=== PATIENT | male | born 1935 | race Caucasian/White ===

== ENCOUNTER → 2018-10-14 14:35 | Outpatient (CLI) | payer OTHER, SELFPAY ==
--- NOTE | 2018-10-14 | DI.RAD.S_ITS ---
PROCEDURE: XR LUMBAR SPINE MIN 4V INDICATIONS: LUMBAR RADICULOPATHY TECHNIQUE: 5 views of the lumbar spine were acquired. COMPARISON: Outside Film, CT, CT ABDOMEN PELVIS WITHOUT CONTRAST, 07/08/2018, 10:45. FINDINGS: Bones: 5 nonrib-bearing vertebrae are present. There is multilevel trace retrolisthesis of L1 on L2, L2 and L3, L3 on L4. Severe disc space narrowing is present at T12-L1, L1-L2, L3-L4, L4-5 and L5-S1. Severe foraminal narrowing is present at L5-S1, moderate to severe L4-5. Prominent bridging osteophytes are present at T11-12. No vertebral body compression fractures. No suspicious bony lesions. Soft tissues: Overlying bowel gas pattern is normal. No suspicious soft tissue calcifications. Oblique images: No pars defects. IMPRESSION: Multilevel degenerative changes with as above most severe at L5-S1. Dictated by: Almaz Guevara M.D. on 10/14/2018 at 16:28 Approved by: Almaz Guevara M.D. on 10/14/2018 at 16:30
== END ==
PROVIDERS: PCP Family Medicine; Visit Provider Family Medicine
DX: M47.27 Other spondylosis with radiculopathy, lumbosacral region (principal)
CPT/HCPCS: 72110

== ENCOUNTER → 2019-01-08 15:39 | Outpatient (CLI) | payer OTHER, SELFPAY ==
--- NOTE | 2019-01-08 15:46 | DI.MRI.S_ITS ---
PROCEDURE: MR LUMBAR SPINE WO CON INDICATIONS: Low back left lower extremity symptoms TECHNIQUE: Noncontrast sagittal T1 spin echo and T2 fast echo, sagittal STIR, axial T1 and T2 fast spin echo through the lumbar spine. In cases with scoliosis, additional coronal T2 fast spin echo may be performed. COMPARISON: [facility], CR, XR LUMBAR SPINE MIN 4V, 10/14/2018, 14:46. FINDINGS: Image quality: Excellent. Alignment and Curvature: 5 lumbar type vertebral bodies are present a plain film. There is mild, grade 1 retrolisthesis of L1 on L2, and L2 on L3. Bone Marrow: Marrow is of normal overall signal. No acute vertebral body compression fractures. There is moderate reactive signal within the endplates adjacent to the L2-L3 and L3-L4 intervertebral discs. Mild reactive signal within the implant adjacent to the T11-T12, T12-L1, L1-L2, L4-L5, and L5-S1 intervertebral discs. Left L4-L5 hemilaminotomy. Spinal Cord: Conus medullaris terminates at the L2-L3 disc space level. Visualized cord demonstrates normal signal and size. Paraspinous Soft Tissues: No paravertebral masses. L1-L2: Moderate disc height loss and desiccation. Moderate diffuse disc bulge. Mild facet and ligament flavum hypertrophy. Mild canal stenosis. Moderate subarticular foraminal stenosis bilaterally. L2-L3: Moderate disc height loss and desiccation. Moderate diffuse disc bulge. Mild facet and ligament flavum hypertrophy. Mild canal stenosis. Moderate subarticular foraminal stenosis. L3-L4: Severe disc height loss and desiccation. Moderate diffuse disc bulge/osteophyte. Moderate facet and ligamentum flavum hypertrophy bilaterally. Severe canal stenosis. Moderate subarticular foraminal stenosis bilaterally. L4-L5: Moderate disc height loss and desiccation. Moderate diffuse disc bulge. Mild facet hypertrophy bilaterally. Left hemilaminotomy. Mild canal stenosis. Severe left and moderate right subarticular foraminal stenosis. Mild left L4 nerve root compression. L5-S1: Moderate disc height loss and desiccation. Moderate diffuse disc bulge. Moderate bilateral facet hypertrophy. No significant canal stenosis. Severe left and moderate right subarticular foraminal stenosis. Mild left L5 nerve root compression. IMPRESSION: 1. Multilevel degenerative disc and facet disease, as well as ligamentum flavum hypertrophy and epidural lipomatosis. 2. Multilevel canal stenoses, worst at L3-L4, where there is severe canal stenosis. 3. Multilevel foraminal stenoses, worst at L4-L5 and L5-S1, where there is associated intraforaminal nerve root compression. Recommend correlation with clinical symptoms to ascertain relevance of these findings. Dictated by: Demario Rivas M.D. on 01/09/2019 at 8:17 Approved by: Demario Rivas M.D. on 01/09/2019 at 8:28
== END ==
PROVIDERS: PCP Family Medicine; Visit Provider Physical Medicine & Rehabilitation
DX: M47.27 Other spondylosis with radiculopathy, lumbosacral region (principal); M51.16 Intervertebral disc disorders with radiculopathy, lumbar region; M51.17 Intervertebral disc disorders with radiculopathy, lumbosacral region; M48.061 Spinal stenosis, lumbar region without neurogenic claudication; M48.07 Spinal stenosis, lumbosacral region; E88.2 Lipomatosis, not elsewhere classified; R26.81 Unsteadiness on feet; Z98.890 Other specified postprocedural states
CPT/HCPCS: 72148

== ENCOUNTER → 2019-03-12 13:30 | Outpatient (CLI) | payer OTHER, SELFPAY ==
--- NOTE | 2019-03-12 | DI.RAD.S_ITS ---
PROCEDURE: XR KUB INDICATIONS: CALICULUS OF KIDNEY TECHNIQUE: One view of the abdomen acquired. COMPARISON: Outside Film, CT, CT ABDOMEN PELVIS WITHOUT CONTRAST, 07/08/2018, 10:45. FINDINGS: Surgical changes and devices: None. Bowel: Bowel gas pattern is normal. Soft tissues: No suspicious abdominal calcifications. Visualized solid organ contours appear normal in size. The body habitus is relatively large, the calculus seen by prior CT scanning 07/08/18 was small on the right, and cannot be detected by this study. Bones: No suspicious bony lesions. IMPRESSION: No urinary tract stone identified. As discussed, the calculus seen by prior CT scan in July of last year was only approximately 2-3 mm in maximal dimension, and cannot be detected by this plain film imaging. Surgical clips of prior cholecystectomy at the right upper quadrant can be seen. Dictated by: Tho Maxwell M.D. on 03/12/2019 at 15:35 Approved by: Tho Maxwell M.D. on 03/12/2019 at 15:37
== END ==
PROVIDERS: PCP Family Medicine; Referring Provider Urology; Visit Provider Urology
DX: N20.0 Calculus of kidney (principal); Z90.49 Acquired absence of other specified parts of digestive tract
CPT/HCPCS: 74018

== ENCOUNTER → 2019-06-23 13:38 | Outpatient (CLI) | payer OTHER, SELFPAY ==
[2019-06-24 11:03] LABS: COVID19 Sendout NOT DETECTED
== END ==
PROVIDERS: PCP Family Medicine; Visit Provider Registered Nurse
DX: Z01.818 Encounter for other preprocedural examination (principal)
CPT/HCPCS: 87635

== ENCOUNTER 2019-06-26 13:18 | Outpatient (CLI) | payer OTHER, SELFPAY ==
[2019-06-26] VITALS (10 sets, daily range): BP systolic 139–180; BP diastolic 77–100; PULSE 76–95; RESP 16–18; TEMP 36.6; O2SAT 93–98
--- NOTE | 2019-06-26 13:20 | DI.RAD.S_ITS ---
PROCEDURE: PAIN L INTERLAMINAR/CAUDAL INJ INDICATIONS: SPONDYLOSIS FINDINGS: Fluoroscopic spot filming was performed to verify placement of spinal needles at the L3-4 midline level(s), as labeled on the films. Appropriate location(s) of the needle tip(s) was confirmed by injection of iodinated contrast. IMPRESSION: Successful midline L3-L4 needle tip localization for interlaminar epidural steroid injection. Dictated by: Tho Maxwell M.D. on 06/26/2019 at 15:12 Approved by: Tho Maxwell M.D. on 06/26/2019 at 15:13
--- NOTE | 2019-06-26 13:44 | P.PCN_ITS ---
Procedures Date/Time Date of procedure: 06/26/19 Time of procedure: 13:48 General Procedure description: POST OP DIAGNOSIS 1. HNP WITH RADICULAR FEATURES, 2. MULTILEVEL CENTRAL STENOSIS, PROCEDURES 1. FLUORSCOPICALLY GUIDED CONTRAST CONTROLLED INTERLAMINAR EPIDURAL STEROID INJECTION - L3/4 PHYSICIAN: Oli Delcid, INDICATIONS Kenny is referred by Dr. Jacob for treatment of Bilateral Foraminal Stenosis L>R LE symptoms. FINDINGS Multilevel Central Spinal Stenosis with Nerve Root Compression DESCRIPTION OF PROCEDURE Fluoroscopically guided, contrast-controlled L3/4 translaminar epidural steroid injection. Following review of allergy and review of potential side effects and complications, including, but not necessarily limited to, infection, allergic reaction, local tissue breakdown, temporary as well as permanent nerve injury, paralysis, stroke and possible , the patient indicated that the patient understood and agreed to proceed. An informed consent document was signed by the patient, witnessed by a nurse, and placed in the patient's chart. Additionally, other treatment options including modalities, medications, and physical therapy were reviewed with the patient. After review of previous anaesthesic history and IV conscious sedation the patient was deemed safe to proceed with todays procedure with IV conscious sedation as ASA class II designation. Safety time-out was performed to confirm patient ID, procedure to be performed and site of procedure. IV sedation was accomplished with a combination of 2mg of Versed was administered by the RN after DO order, titrated to patient comfort during the course of the procedure while the patient remained responsive to all verbal commands. In the prone position, following sterile prep and drape of the lumbar region, the L3/4 translaminar space was identified fluoroscopically. The skin was anesthetized via a 25-gauge, 1.5-inch needle with 1% lidocaine solution. At this point, a 22-gauge short bevel spinal needle was atraumatically introduced and advanced under fluoroscopic guidance into the region of the L3/4 translaminar space. Depth was confirmed on lateral view. Radiological data, including multiple fluoroscopic views of the lumbar spine, reveal a spinal needle at the L3/4 translaminar space. Lateral views then show placement of the needle in the epidural space. Subsequent views show contrast material flowing superiorly and inferiorly in the epidural space. No vascular or intrathecal uptake is observed. At this point, using loss of resistance technique with saline and air, the epidural space was entered. This was confirmed following negative aspiration with injection of approximately 1.5 cc of Isovue 200, showing excellent epidural flow without vascular or intrathecal uptake. At this point, 1 cc of 1% lidocain e solution combined with 3cc or 20mg of dexamethasone and 6mg of betamethasone was injected without incident. The patient tolerated the procedure well without signs or symptoms of complications prior to transfer to the recovery area continued monitoring without incident. The patient was then transferred to the recovery area where they were observed for an appropriate period of time after the injection. The patient reported a VAS score of 6 prior to the procedure and a post- procedure VAS of 0. Total Fluoroscopy Time: 11 seconds Total Conscious Sedation Time: 24min POST OP INSTRUCTIONS The patient was provided a Pain Log to continue to record their response to the target-specific procedure prior to follow-up visit with their referring physician. Additionally, specific post-injection care instructions and a contact number to our office were provided if concerns arise regarding possible complications associated with the procedure are suspected. Oli Delcid, Complications: none
[2019-06-26] MEDS: MIDAZOLAM 5 MG/5 ML VIAL IV (14:20)
[2019-06-26] MEDS: DEXAMETHASONE 10 MG/ML VIAL 20 MG INJ (14:27)
[2019-06-26] MEDS: BUPIVACAINE 0.25% (PF) VIAL 2 ML INJ (14:27)
[2019-06-26] MEDS: IOPAMIDOL 15 ML VIAL 3 ML INJ (14:28)
[2019-06-26] MEDS: BETAMETHASONE 30 MG/5 ML MDV 6 MG INJ (14:28)
== END 2019-06-26 15:00 | disposition home or self-care (01) ==
LOC: RAD 13:19
PROVIDERS: PCP Family Medicine; Referring Provider Physical Medicine & Rehabilitation; Visit Provider Physical Medicine & Rehabilitation
DX: M51.16 Intervertebral disc disorders with radiculopathy, lumbar region (principal); M48.061 Spinal stenosis, lumbar region without neurogenic claudication
CPT/HCPCS: 62323; 99152; J0702; J1100; J2250; J3010

== ENCOUNTER → 2020-06-10 13:19 | Outpatient (CLI) | payer OTHER, SELFPAY ==
--- NOTE | 2020-06-10 | DI.ECHO.S_ITS ---
[place] [facility]---------+ [facility] +---------+ : : [address] : [address] : : : : [id number] : : : : Phone: [phone]+ Echocardiogram Report + + :Name: SHARI COLMENARES Study Date: 06/10/2020 Height: 69 in : :[facility] ReadingLocation: Weight: 275 lb : : Gender: Male BSA: 2.4 m2 : :: 1935 Age: 84 yrs BP: 185/97 mmHg: :Reason For Study: Hypertension : :Ordering Physician: : :cheikh harkins Performed By: Jignesh Mobley : :Referring: CHEIKH HARKINS : + + Interpretation Summary This is a technically difficult study enhanced with Definity echocontrast. Normal sinus rhythm with frequent PAC's. Patient's blood pressure was significantly elevated during exam at 185/97 mm Hg. Normal LV size and wall thickness; normal wall motion based on visualized segments. Of note only 10 out of 17 segments are visualized. Grossly normal LV systolic function. EF is 60-65%. Mildly dilated RV; atria demonstrate normal size. No significant valvular abnormalities. No prior study available for comparison. Procedure: A two-dimensional transthoracic echocardiogram with color flow and Doppler was performed. The study quality was technically difficult. There is no prior echocardiogram noted for this patient. A contrast injection of Definity was performed to improve assessment of LV function. Left Ventricle: The left ventricle is not well visualized. Due to the poor quality of the echocardiogram, an assessment of left ventricular ejection fraction cannot be made. Regional wall motion abnormalities cannot be excluded due to limited visualization. Unable to assess diastolic function due to arrhythmia. Right Ventricle: The right ventricle is mildly dilated. The right ventricular systolic function is normal. Atria: The left atrium is not well visualized. Right atrium not well visualized secondary to technical limitations. There is no Doppler evidence for an interatrial shunt. Mitral Valve: There is mild mitral annular calcification. There is no mitral regurgitation noted. Aortic Valve: The aortic valve is trileaflet. The aortic valve opens well. No aortic regurgitation is present. Tricuspid Valve: There is mild tricuspid regurgitation. Pulmonary artery pressures cannot be estimated because of the lack of a measurable TR jet velocity but the IVC suggests a CVP of around 8 mmHg. Pulmonic Valve: The pulmonic valve is not well seen, but is grossly normal. There is no pulmonic valvular regurgitation. Great Vessels: The aortic root is not well visualized. The ascending aorta could not be visualized. The IVC is dilated (diameter is greater than 2.1 cm) yet it collapses greater than 50% with a sniff. This suggests a right atrial pressure of 8 mm Hg. Pericardium/ Pleura There is no pericardial effusion. There is no pleural effusion. MMode/2D Measurements & Calculations LVIDd: 5.8 cm LVOT diam: 2.4 cm LVIDs: 3.9 cm FS: 32.3 % IVSd: 1.2 cm LVPWd: 0.63 cm LV mcmillan. diameter/BSA (cm/m^2): 2.4 LV sys. diameter/BSA (cm/m^2): 1.7 IVC diam: 2.6 cm Doppler Measurements & Calculations Ao V2 max: 97.2 cm/sec LVOT Max Estuardo: 77.7 cm/sec Ao V2 mean: 66.1 cm/sec LV V1 max P.4 mmHg Ao max P.8 mmHg LV V1 VTI: 16.3 cm Ao mean P.0 mmHg ABHINAV(I,D): 4.1 cm2 Ao V2 VTI: 18.1 cm ABHINAV(V,D): 3.7 cm2 sev ratio: 0.90 ABHINAV indexed to BSA (cm^2/m^2): 1.7 Med Peak E' Estuardo: 6.5 cm/sec PA V2 max: 125.0 cm/sec PA V2 mean: 84.8 cm/sec PA mean P.2 mmHg PA pr(Accel): 54.1 mmHg SV(LVOT): 75.0 ml Electronically signed by: Ivy Hodges M.D. on Reading Physician:06/11/2020 01:07 AM
== END ==
PROVIDERS: PCP Internal Medicine; Referring Provider Internal Medicine; Visit Provider Internal Medicine
DX: I07.1 Rheumatic tricuspid insufficiency (principal); I10 Essential (primary) hypertension
CPT/HCPCS: C8929; Q9957

== ENCOUNTER → 2021-08-17 12:43 | Outpatient (CLI) | payer OTHER, SELFPAY ==
--- NOTE | 2021-08-17 12:45 | DI.RAD.S_ITS ---
PROCEDURE: XR LUMBAR SPINE MIN 4V INDICATIONS: BACK PAIN TECHNIQUE: 5 views of the lumbar spine were acquired, including bilateral oblique views. COMPARISON: [facility], , XR LUMBAR SPINE MIN 4V, 10/14/2018, 14:46. FINDINGS: Bones: 5 nonrib-bearing vertebrae are present. There is 6 mm retrolisthesis of L1 on L2. Degenerative endplate changes, loss of disc height and bilateral facet arthrosis are seen. No acute vertebral body compression fractures. Chronic appearing mild anterior wedge compression deformity involving superior endplate of T12 and L1 are seen unchanged from 2019 study . No suspicious bony lesions. Soft tissues: Overlying bowel gas pattern is normal. No suspicious soft tissue calcifications. Oblique images: No pars defects. IMPRESSION: Grade 1 retrolisthesis of L1 on L2. No acute compression fracture. Degenerative disc disease throughout lumbar spine. Chronic appearing mild anterior wedge compression deformity at T12 and L1 levels unchanged from prior study. Dictated by: Jamie Sharp M.D. on 08/17/2021 at 14:47 Approved by: Jamie Sharp M.D. on 08/17/2021 at 14:48
== END ==
PROVIDERS: PCP Internal Medicine; Referring Provider Physical Medicine & Rehabilitation; Visit Provider Physical Medicine & Rehabilitation
DX: M47.27 Other spondylosis with radiculopathy, lumbosacral region (principal); M51.16 Intervertebral disc disorders with radiculopathy, lumbar region; M43.16 Spondylolisthesis, lumbar region; M17.11 Unilateral primary osteoarthritis, right knee; M43.9 Deforming dorsopathy, unspecified; R26.81 Unsteadiness on feet; Z98.890 Other specified postprocedural states
CPT/HCPCS: 20611; 72110; 99215; J0702

== ENCOUNTER → 2021-10-04 11:02 | Outpatient (CLI) | payer OTHER, SELFPAY ==
[2021-10-04 13:42] LABS: COVID19 -Nasal RAPID Negative (Negative)
== END ==
PROVIDERS: PCP Internal Medicine; Visit Provider Physical Medicine & Rehabilitation
DX: Z20.822 Contact with and (suspected) exposure to COVID-19 (principal)
CPT/HCPCS: 87635; C9803

== ENCOUNTER 2021-10-06 10:08 | Outpatient (CLI) | payer OTHER, SELFPAY ==
[2021-10-06] VITALS (8 sets, daily range): BP systolic 141–182; BP diastolic 64–96; PULSE 72–75; RESP 18–26; TEMP 36.7; O2SAT 94–98
--- NOTE | 2021-10-06 10:09 | DI.RAD.S_ITS ---
PROCEDURE: PAIN L INTERLAMINAR/CAUDAL INJ INDICATIONS: SPONDYLOSIS COMPARISON: [facility], XA, PAIN L INTERLAMINAR/CAUDAL INJ, 06/26/2019, 13:22. FINDINGS: Fluoroscopic spot filming was performed to verify placement of spinal needles at the L2-L3 level, as labeled on the films. Appropriate location(s) of the needle tip(s) was confirmed by injection of iodinated contrast. IMPRESSION: Fluoroscopic images demonstrating L2-L3 translaminar epidural steroid injection. Dictated by: Feng Duarte M.D. on 10/06/2021 at 12:33 Approved by: Feng Duarte M.D. on 10/06/2021 at 12:34
[2021-10-06] MEDS: MIDAZOLAM 2 MG/2 ML VIAL IV (11:04)
[2021-10-06] MEDS: BUPIVACAINE 0.25% (PF) VIAL 2 ML INJ (11:06)
[2021-10-06] MEDS: IOPAMIDOL 15 ML VIAL 3 ML INJ (11:06)
[2021-10-06] MEDS: BETAMETHASONE 30 MG/5 ML MDV 6 MG INJ (11:07)
[2021-10-06] MEDS: DEXAMETHASONE 10 MG/ML VIAL 20 MG INJ (11:07)
--- NOTE | 2021-10-06 11:17 | PM.PROC.IR.1 ---
Date/Time/Diagnoses Date of procedure: 10/06/21 Time of procedure: 11:17 Pre-procedure diagnosis: 1. HNP WITH RADICULAR FEATURES, 2. MULTILEVEL CENTRAL STENOSIS, Post-procedure diagnosis: same Procedure Notes Procedure: 1. FLUOROSCOPICALLY GUIDED CONTRAST CONTROLLED INTERLAMINAR EPIDURAL STEROID INJECTION - L2/3 Indications: Kenny is referred by Dr. Chi for treatment of Bilateral Foraminal Stenosis L>R LE symptoms. Physician: Oli Delcid Total Fluoroscopy time (seconds): 10 Total sedation minutes: 9 Complications: none Procedure in detail & Post-procedure care: FINDINGS Multilevel Central Spinal Stenosis with Nerve Root Compression DESCRIPTION OF PROCEDURE Fluoroscopically guided, contrast-controlled L2/3 translaminar epidural steroid injection. Following review of allergy and review of potential side effects and complications, including, but not necessarily limited to, infection, allergic reaction, local tissue breakdown, temporary as well as permanent nerve injury, paralysis, stroke and possible , the patient indicated that the patient understood and agreed to proceed. An informed consent document was signed by the patient, witnessed by a nurse, and placed in the patient's chart. Additionally, other treatment options including modalities, medications, and physical therapy were reviewed with the patient. After review of previous anaesthesic history and IV conscious sedation the patient was deemed safe to proceed with today?s procedure with IV conscious sedation as ASA class II designation. Safety time-out was performed to confirm patient ID, procedure to be performed and site of procedure. IV sedation was accomplished with a combination of 2mg Versed administered by the RN after DO order, titrated to patient comfort during the course of the procedure while the patient remained responsive to all verbal commands. In the prone position, following sterile prep and drape of the lumbar region,the L2/3 translaminar space was identified fluoroscopically. The skin was anesthetized via a 25-gauge, 1.5-inch needle with 1% lidocaine solution. At this point, a 22-gauge short bevel spinal needle was atraumatically introduced and advanced under fluoroscopic guidance into the region of the L2/3 translaminar space. Depth was confirmed on lateral view. Radiological data, including multiple fluoroscopic views of the lumbar spine, reveal a spinal needle at the L2/3 translaminar space. Lateral views then show placement of the needle in the epidural space. Subsequent views show contrast material flowing superiorly and inferiorly in the epidural space. No vascular or intrathecal uptake is observed. At this point, using loss of resistance technique with saline and air, the epidural space was entered. This was confirmed following negative aspiration with injection of approximately 1.5 cc of Isovue 200, showing excellent epidural flow without vascular or intrathecal uptake. At this point, 1 cc of 1% lidocaine solution combined with 3cc or 20mg of dexamethasone and 6mg of betamethasone was injected without incident. The patient tolerated the procedure well without signs or symptoms of complications prior to transfer to the recovery area continued monitoring without incident. The patient was then transferred to the recovery area where they were observed for an appropriate period of time after the injection. The patient reported a VAS score of 6 prior to the procedure and a post-procedure VAS of 0. POST OP INSTRUCTIONS The patient was provided a Pain Log to continue to record their response to the target-specific procedure prior to follow-up visit with their referring physician. Additionally, specific post-injection care instructions and a contact number to our office were provided if concerns arise regarding possible complications associated with the procedure are suspected.
--- NOTE | 2021-10-06 12:09 | P.PCN_ITS ---
Date/Time/Diagnoses Date of procedure: 10/06/21 Time of procedure: 12:09 Pre-procedure diagnosis: 1. RECALCITRANT FACET ARTHROPATHY Post-procedure diagnosis: same Procedure Notes Procedure: 1. BILATERAL L3, L4 AND L5 MEDIAL BRANCH RADIOFREQUENCY NEUROTOMY Indications: Kenny is referred by Dr. Chi for treatment of facet arthropathy. Physician: Oli Delcid Total Fluoroscopy time (seconds): 18 Total sedation minutes: 31 Complications: none Procedure in detail & Post-procedure care: DESCRIPTION OF PROCEDURE Bilateral L3, L4 and L5 medial branch radiofrequency neurotomy The patient is well known to this clinic having undergone previous facet injections with good but temporary relief. The patient has experienced appropriate, concordant relief with previous facet and median branch blocks but the patient's pain has been recalcitrant to further conservative measures. Therefore, based upon the patient's relief and persistent symptoms, the patient is considered an appropriate candidate for facet rhizotomy. All of the patient's questions regarding the risks versus benefits of the procedure, including, but not limited to, bleeding, infection, temporary as well as lasting nerve injury, paralysis, stroke, and , as well treatment alternatives were answered to satisfaction. After obtaining informed consent, denial of pertinent drug allergies, as well as being made aware of the potential risks of bleeding, infection, spinal cord trauma, paralysis, temporary and permanent nerve damage, seizure, stroke, and possible , the patient was brought to the fluoroscopy suite and positioned prone on the fluoroscopy table. The lumbar region was prepped with Betadine and covered with a fenestrated drape in the usual sterile fashion. Appropriate monitors applied including pulse oxi meter, pulse, and blood pressure for regular monitoring throughout the procedure. After review of previous anaesthesic history and IV conscious sedation the patient was deemed safe to proceed with today's procedure with IV conscious sedation as ASA class II designation. Safety time-out was performed to confirm patient ID, procedure to be performed and site of procedure. IV sedation was accomplished with a combination of 4mg of Versed administered by the RN after DO order, titrated to patient comfort during the course of the procedure while the patient remained responsive to all verbal commands. After local infiltration using 1% lidocaine, under fluoroscopic guidance, a 10- cm RF insulated needle with a 10-mm active tip was positioned parallel to the junction of the right the superior articulating process where the L5 medial branch resides. Needle placement was confirmed with motor stimulation of .5v on the right which produced local stimulation without radicular component. The s timulation was then increased to 2v with, once again, only local multifidus stimulation without radicular component. The needle was then removed and the identical procedure was performed along the length of the right L4 medial branch with motor stimulation at .7v on the right. The identical procedure was once again performed along the length of the right L3 and medial branch with motor stimulation of .5v on the right. The medial branches were then anesthetised with 0.5% marcaine. This was then followed by two discreet lesions performed at 80 degrees Celsius for 90 seconds each. The identical procedures were repeated on the left. The patient tolerated the procedure well without signs or symptoms of complications prior to transfer to the recovery area continued monitoring without incident. The patient was then transferred to the recovery area where they were observed for an appropriate period of time after the injection. The patient reported a VAS score of 9 prior to the procedure and a post-procedure VAS of 0. POST OP INSTRUCTIONS The patient was provided a Pain Log to continue to record the patient's response to the target-specific procedure prior to the patient's follow-up visit with the referring physician. Additionally, specific post-injection care instructions and a contact number to our office were provided if concerns arise regarding pos sible complications associated with the procedure are suspected.
== END 2021-10-06 11:40 | disposition home or self-care (01) ==
PROVIDERS: PCP Internal Medicine; Referring Provider Physical Medicine & Rehabilitation; Visit Provider Physical Medicine & Rehabilitation
DX: M51.16 Intervertebral disc disorders with radiculopathy, lumbar region (principal); M48.061 Spinal stenosis, lumbar region without neurogenic claudication
CPT/HCPCS: 62323; J0702; J1100; J2250; J3490

== ENCOUNTER 2022-03-16 09:49 | Outpatient (CLI) | payer OTHER, SELFPAY ==
[2022-03-16] VITALS (8 sets, daily range): BP systolic 156–192; BP diastolic 70–100; PULSE 67–82; RESP 18–24; TEMP 36.3; O2SAT 91–99
--- NOTE | 2022-03-16 09:50 | DI.RAD.S_ITS ---
PROCEDURE: PAIN L/SI FACET INJ/BLK 1STL INDICATIONS: SPONDYLOSIS COMPARISON: [facility], XA, PAIN L INTERLAMINAR/CAUDAL INJ, 10/06/2021, 11:05. FINDINGS: Fluoroscopic spot filming was performed to verify placement of spinal needles on the right at the L4, L5, and S1 levels, as labeled on the films. Appropriate location of the needle tips was confirmed by injection of iodinated contrast. IMPRESSION: Intraprocedural examination demonstrating appropriate positions of the needles. Dictated by: Sidney Gray M.D. on 03/16/2022 at 14:13 Approved by: Sidney Gray M.D. on 03/16/2022 at 14:13
[2022-03-16] MEDS: MIDAZOLAM 2 MG/2 ML VIAL 1 MG IV (11:33)
[2022-03-16] MEDS: IOPAMIDOL 15 ML VIAL 3 ML INJ (11:38)
[2022-03-16] MEDS: BUPIVACAINE 0.5% MDV 5 ML SUBCUT (11:39)
--- NOTE | 2022-03-16 11:50 | PM.PROC.IR.1 ---
Date/Time/Diagnoses Date of procedure: 03/16/22 Time of procedure: 11:51 Pre-procedure diagnosis: 1. FACET ARTHROPATHY Post-procedure diagnosis: same Procedure Notes Procedure: 1. Right L4, L5 and S1 MB BLOCKS LA Indications: Kenny is referred by Dr. Chi for treatment of Right Axial LBP. Physician: Oli Delcid Total Fluoroscopy time (seconds): 8 Total sedation minutes: 11 Complications: none Procedure in detail & Post-procedure care: DESCRIPTION OF PROCEDURE Fluoroscopically guided, contrast-controlled right L4, L5 and S1 medial branch blocks with 0.5cc of 0.5% Marcaine. Following review of allergy and review of potential side effects and complications, including, but not necessarily limited to, infection, allergic reaction, local tissue breakdown, nerve injury, paralysis, stroke and possible , the patient indicated that the patient understood and agreed to proceed. An informed consent document was signed by the patient, witnessed by a nurse, and placed in the patient's chart. After review of previous anaesthesic history and IV conscious sedation the patient was deemed safe to proceed with today?s procedure with IV conscious sedation as ASA class II designation. Safety time-out was performed to confirm patient ID, procedure to be performed and site of procedure. IV sedation was accomplished with a combination of 1mg of Versed was administered by the RN after DO order, titrated to patient comfort during the course of the procedure while the patient remained responsive to all verbal commands In the prone position, following sterile prep and drape of the lumbar region, the right L4, L5 and S1 anatomical location of the medial branch of the dorsal ramus was identified fluoroscopically. Subsequently an anesthetic skin wheal using 1% lidocaine solution was initiated at each of the anatomical spots. Subsequently then a 22-gauge 3.5-inch spinal needle was atraumatically introduced and advanced under fluoroscopic guidance at each of the corresponding sites at the right L4, L5 and S1 MB. After negative aspiration, 0.2 cc of Isovue 200 was injected, confirming placement without vascular or intrathecal uptake. Subsequently then 0.5cc of 0.5% Marcaine solution was injected at each of the corresponding sites at the right L4, L5 and S1 medial branch locations. The patient tolerated the procedure well without signs or symptoms of complications. The procedure tolerated the procedure well without signs or symptoms of complications prior to transfer to the recovery area continued monitoring without incident. Post-procedure, the patient was monitored initiating provocative activities to measure the amount of relief from block of the facetogenic pain. The patient reported a VAS of 7 prior to the procedure and a post-procedure VAS of 1. It has been a pleasure to assist in the diagnostic and therapeutic care of your patient. POST OP INSTRUCTIONS The patient was provided with a Pain Log to complete over the next several hours and subsequent days prior to the patient's follow up with the ordering physician. If the patient has paper bag maker relief to the solution applied, then they may be a candidate for medial branch rhizotomy. The patient is aware, was provided, once again, with a Pain Log and will follow up with the referring physician for review and clinical correlation.
== END 2022-03-16 12:10 | disposition home or self-care (01) ==
LOC: RAD 09:49
PROVIDERS: PCP Internal Medicine; Referring Provider Physical Medicine & Rehabilitation; Visit Provider Physical Medicine & Rehabilitation
DX: M47.816 Spondylosis without myelopathy or radiculopathy, lumbar region (principal); M47.817 Spondylosis without myelopathy or radiculopathy, lumbosacral region
CPT/HCPCS: 64493; 64494; 64495; 99152; J2250

== ENCOUNTER 2023-01-25 12:17 | Outpatient (CLI) | payer OTHER, SELFPAY ==
[2023-01-25] VITALS (7 sets, daily range): BP systolic 142–190; BP diastolic 76–105; PULSE 75–82; RESP 14–22; TEMP 36.7; O2SAT 94–98
--- NOTE | 2023-01-25 13:00 | DI.RAD.S_ITS ---
PROCEDURE: PAIN L/SI FACET INJ/BLK 1STL INDICATIONS: SPONDYLOSIS COMPARISON: [facility], , PAIN L/SI FACET INJ/BLK 1STL, 03/16/2022, 12:38. FINDINGS: Fluoroscopic spot filming was performed to verify placement of spinal needles at the right L4, L5 and S1 level(s), as labeled on the films. Appropriate location(s) of the needle tip(s) was confirmed by injection of iodinated contrast. IMPRESSION: Intra procedural examination demonstrating appropriate positions of the needles. Dictated by: Vish Asencio M.D. on 01/25/2023 at 15:43 Approved by: Vish Asencio M.D. on 01/25/2023 at 15:43
[2023-01-25] MEDS: MIDAZOLAM 2 MG/2 ML VIAL 1 MG IV (13:23)
[2023-01-25] MEDS: iopamidoL 15 ML VIAL 3 ML INJ (13:26)
[2023-01-25] MEDS: LIDOCAINE 2% INJ SDV 5ML 5 ML INJ (13:26)
--- NOTE | 2023-01-25 13:43 | PM.PROC.IR.1 ---
Date/Time/Diagnoses Date of procedure: 01/25/23 Time of procedure: 13:43 Pre-procedure diagnosis: Lumbar Facet Arthropathy Post-procedure diagnosis: same Procedure Notes Procedure: 1. Right L4, L5 and S1 MB BLOCKS SA Indications: Kenny is referred by Dr. Chi for treatment of Right Axial LBP. Physician: Oli Delcid Total Fluoroscopy time (seconds): 8 Total sedation minutes: 10 Complications: none Procedure in detail & Post-procedure care: DESCRIPTION OF PROCEDURE Fluoroscopically guided, contrast-controlled right L4, L5 and S1 medial branch blocks with 0.5cc of 2% Lidocaine. Following review of allergy and review of potential side effects and complications, including, but not necessarily limited to, infection, allergic reaction, local tissue breakdown, nerve injury, paralysis, stroke and possible , the patient indicated that the patient understood and agreed to proceed. An informed consent document was signed by the patient, witnessed by a nurse, and placed in the patient's chart. After review of previous anaesthesic history and IV conscious sedation the patient was deemed safe to proceed with today?s procedure with IV conscious sedation as ASA class II designation. Safety time-out was performed to confirm patient ID, procedure to be performed and site of procedure. IV sedation was accomplished with a combination of 2mg of Versed and 50mcg of Fentanyl was administered by the RN after DO order, titrated to patient comfort during the course of the procedure while the patient remained responsive to all verbal commands In the prone position, following sterile prep and drape of the lumbar region, the right L4, L5 and S1 anatomical location of the medial branch of the dorsal ramus was identified fluoroscopically. Subsequently an anesthetic skin wheal using 1% lidocaine solution was initiated at each of the anatomical spots. Subsequently then a 22-gauge 3.5-inch spinal needle was atraumatically introduced and advanced under fluoroscopic guidance at each of the corresponding sites at the right L4, L5 and S1 MB. After negative aspiration, 0.2 cc of Isovue 200 was injected, confirming placement without vascular or intrathecal uptake. Subsequently then 0.5 cc of 2% Lidocaine solution was injected at each of the corresponding sites at the right L4, L5 and S1 medial branch locations. The patient tolerated the procedure well without signs or symptoms of complications. The procedure tolerated the procedure well without signs or symptoms of complications prior to transfer to the recovery area continued monitoring without incident. Post-procedure, the patient was monitored initiating provocative activities to measure the amount of relief from block of the facetogenic pain. The patient reported a VAS of 7 prior to the procedure and a post-procedure VAS of 1. It has been a pleasure to assist in the diagnostic and therapeutic care of your patient. POST OP INSTRUCTIONS The patient was provided with a Pain Log to complete over the next several hours and subsequent days prior to the patient's follow up with the ordering physician. If the patient has cardiopulmonary technologist relief to the solution applied, then they may be a candidate for medial branch rhizotomy. The patient is aware, was provided, once again, with a Pain Log and will follow up with the referring physician for review and clinical correlation.
== END 2023-01-25 13:55 | disposition home or self-care (01) ==
LOC: RAD 12:18
PROVIDERS: PCP Internal Medicine; Referring Provider Physical Medicine & Rehabilitation; Visit Provider Physical Medicine & Rehabilitation
DX: M47.816 Spondylosis without myelopathy or radiculopathy, lumbar region (principal); M47.817 Spondylosis without myelopathy or radiculopathy, lumbosacral region
CPT/HCPCS: 64493; 64494; 99152; J2250

== ENCOUNTER → 2024-06-27 15:00 | Outpatient (CLI) | payer OTHER, SELFPAY ==
--- NOTE | 2024-06-27 15:01 | DI.RAD.S_ITS ---
PROCEDURE: XR LUMBAR SPINE MIN 4V INDICATIONS: BACK PAIN TECHNIQUE: 5 views of the lumbar spine were acquired, including bilateral oblique views. COMPARISON: [facility], , XR LUMBAR SPINE MIN 4V, 08/17/2021, 12:48. FINDINGS: Bones: 5 nonrib-bearing vertebrae are present. There is normal bony alignment. Loss of disc height, degenerative endplate changes and bilateral facet arthrosis throughout lumbar spine significantly progressed compared to 2021 study. No vertebral body compression fractures. No suspicious bony lesions. Soft tissues: Overlying bowel gas pattern is normal. No suspicious soft tissue calcifications. Oblique images: No pars defects. 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 No acute vertebral body compression fracture. No gross pars defects. Dictated by: Jamie Sharp M.D. on 06/27/2024 at 15:35 Approved by: Jamie Sharp M.D. on 06/27/2024 at 15:36
== END ==
PROVIDERS: PCP Internal Medicine; Referring Provider Physical Medicine & Rehabilitation; Visit Provider Physical Medicine & Rehabilitation
DX: M47.27 Other spondylosis with radiculopathy, lumbosacral region (principal); M47.816 Spondylosis without myelopathy or radiculopathy, lumbar region; Z98.890 Other specified postprocedural states; M47.896 Other spondylosis, lumbar region; M17.11 Unilateral primary osteoarthritis, right knee; R26.81 Unsteadiness on feet
CPT/HCPCS: 72110; 99214